=== PATIENT | female | born 1995 | race Caucasian/White ===

== ENCOUNTER 2017-07-06 16:59 | Outpatient (CLI) | payer BC ==
--- NOTE | 2017-07-06 17:43 | XRAY Report ---
EXAM: ABDOMEN RADIOGRAPHY EXAM DATE: 07/06/2017 05:31 PM. CLINICAL HISTORY: LEFT UPPER QUADRANT PAIN. COMPARISON: None. TECHNIQUE: 1 view. FINDINGS: Bowel Gas Pattern: Within normal limits. No dilated loops. Other: None. IMPRESSION: Normal 1-view abdomen x-ray. [facility] Referring Provider Line: [phone] SITE ID: [id number]
== END 2017-07-06 17:00 | disposition home or self-care (01) ==
LOC: DI 16:59
PROVIDERS: ATTEND Family Medicine
DX: R10.12 Left upper quadrant pain (principal)
CPT/HCPCS: 74018

== ENCOUNTER 2017-07-06 18:30 | Emergency (ER) | payer BC ==
[2017-07-06 20:00] LABS: BILIRUBIN,URINE NEGATIVE (NEGATIVE); GLUCOSE, URINE (UA) NEGATIVE (NEGATIVE); KETONES,URINE (UA) NEGATIVE (NEGATIVE); LEUKOCYTE ESTERASE, URINE NEGATIVE (NEGATIVE); NITRITE,URINE NEGATIVE (NEGATIVE); OCCULT BLOOD,URINE NEGATIVE (NEGATIVE); PROTEIN,URINE NEGATIVE (NEGATIVE); UROBILINOGEN,URINE 0.2 (NORMAL) E.U./dL (NORMAL)
[2017-07-06 20:02] LABS: CLARITY,URINE CLEAR (CLEAR); HCG UR QUAL NEGATIVE
[2017-07-06] MEDS ORDERED: ONDANSETRON 4 MG/2 ML VIAL IVP STA (20:08)
[2017-07-06] MEDS ORDERED: MORPHINE 2 MG/ML CARPUJECT IVP STA (20:08)
[2017-07-06 20:09] LABS: BASOPHILS % (AUTO) 0.3 %; EOSINOPHILS % (AUTO) 0.3 %; HGB - HEMOGLOBIN 13.5 g/dL (12.0-16.0); LYMPHOCYTES % (AUTO) 10.8 %; MEAN CORPUSCULAR HEMOGLOBIN 27.6 pg (27.0-31.0); MEAN CORPUSCULAR HGB CONC 33.1 g/dL (32.0-36.0); MEAN CORPUSCULAR VOLUME 83.3 fL (81.0-99.0); MEAN PLATELET VOLUME 7.4 fL (7.9-10.8); MONOCYTES # (AUTO) 0.5 10^3/uL (0.0-1.0); MONOCYTES % (AUTO) 5.9 %; NEUTROPHILS # (AUTO) 7.3 10^3/uL (1.5-6.6); NEUTROPHILS % (AUTO) 82.7 %; PLT - PLATELET COUNT 327 10^3/uL (130-450); RED BLOOD COUNT 4.91 10^6/uL (4.20-5.40); RED CELL DISTRIBUTION WIDTH 14.1 % (12.0-15.0); WHITE BLOOD COUNT 8.8 x10^3/uL (4.8-10.8)
[2017-07-06 20:21] LABS: ALBUMIN/GLOBULIN RATIO 1.4 (1.0-2.2); CALCIUM 9.4 mg/dL (8.5-10.3); CREATININE 0.8 mg/dL (0.4-1.0); TOTAL PROTEIN 8.5 g/dL (6.7-8.2)
[2017-07-06] MEDS ORDERED: IOPAMIDOL-300 100 ML VIAL ONE (20:55)
--- NOTE | 2017-07-06 21:03 | ED Physician Documentation ---
PD HPI ABD PAIN - Stated complaint Stated Complaint: ABD PAIN - Chief complaint Chief Complaint: Abd Pain - History obtained from History obtained from: Patient, Friend - History of Present Illness Timing - onset: How many days ago (3) Timing - details: Gradual onset, Still present Quality: Cramping, Aching Location: Epigastric, LUQ Worsened by: Eating, Moving Associated symptoms: Nausea. No: Fever, Vomiting Similar symptoms before: Work up / diagnostics Recently seen: Clinic - Additional information Additional information: Patient is a 21 year old female with no significant past medical history who is presenting to the emergency department for abdominal pain. patient states that the pain started three days ago and has persisted. Patient went to the clinic today where they did an x-ray which was negative. The clinic told the patient to come to the emergency department for a cT Review of Systems Constitutional: denies: Fever, Chills Eyes: reports: Reviewed and negative Ears: reports: Reviewed and negative Nose: reports: Reviewed and negative Throat: reports: Reviewed and negative Cardiac: denies: Chest pain / pressure, Palpitations Respiratory: denies: Dyspnea, Cough GI: reports: Abdominal Pain, Nausea, Constipation. 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 - Present Medications Home Medications: Ambulatory Orders Medication Instructions Recorded Confirmed Dextroamphetamine/Amphetamine 07/06/17 [Adderall 15 mg Tablet] Dicyclomine [Bentyl] 10 mg PO QID #20 capsule 07/06/17 Meloxicam 07/06/17 Omeprazole [PriLOSEC] 07/06/17 Ondansetron Odt [Zofran] 4 mg TL Q6H PRN #14 tablet 07/06/17 metFORMIN [Glucophage] 07/06/17 - Allergies Allergies/Adverse Reactions: Allergies Allergy/AdvReac Type Severity Reaction Status Date / Time No Known Drug Allergies Allergy Verified 07/06/17 19:00 - Social History Does the pt smoke?: No Smoking Status: Never smoker Does the pt drink ETOH?: Yes Does the pt have substance abuse?: No - Immunizations Immunizations are current?: No - POLST Patient has POLST: No PD ED PE NORMAL - Vitals Vital signs reviewed: Yes - General General: Alert and oriented X 3, Well developed/nourished - HEENT HEENT: Atraumatic, PERRL - Neck Neck: Supple, no meningeal sign - Cardiac Cardiac: RRR - Respiratory Respiratory: No respiratory distress - Abdomen Abdomen: Soft - Derm Derm: Normal color, Warm and dry, No rash - Extremities Extremities: No deformity, No calf tenderness / cord - Neuro Neuro: Alert and oriented X 3, No motor deficit, Normal speech Eye Opening: Spontaneous Motor: Obeys Commands Verbal: Oriented GCS Score: 15 - Psych Psych: Normal mood PD ED PE EXPANDED - HEENT HEENT: Dry mucous membranes - Abdomen Abdomen: Tender to palpation, Epigastric, LUQ. No: Rebound, Guarding Results - Vitals Vitals: Vital Signs - 24 hr 07/06/17 07/06/17 07/06/17 18:55 20:23 21:15 Temperature 37.9 C H Heart Rate 104 H 99 90 Respiratory 20 17 17 Rate Blood Pressure 102/58 L 105/71 109/70 O2 Saturation 100 100 100 07/06/17 07/06/17 21:43 22:06 Temperature Heart Rate 101 H 81 Respiratory 17 17 Rate Blood Pressure 107/66 O2 Saturation 98 98 Oxygen O2 Source Room air - Labs Labs: Laboratory Tests 07/06/17 07/06/17 07/06/17 19:52 20:01 20:01 WBC 8.8 RBC 4.91 Hgb 13.5 Hct 40.9 MCV 83.3 MCH 27.6 MCHC 33.1 RDW 14.1 Plt Count 327 MPV 7.4 L Neut # 7.3 H Lymph # 1.0 L [place] # 0.5 Eos # 0.0 Baso # 0.0 Absolute Nucleated RBC 0.00 Nucleated RBC % 0.0 Sodium 132 L Potassium 3.4 L Chloride 97 L Carbon Dioxide 22 Anion Gap 13.0 BUN 11 Creatinine 0.8 Estimated GFR (MDRD) 90 Glucose 91 Calcium 9.4 Total Bilirubin 1.0 AST 21 ALT 15 Alkaline Phosphatase 60 Total Protein 8.5 H Albumin 5.0 Globulin 3.5 Albumin/Globulin Ratio 1.4 Lipase 19 L Urine Color YELLOW Urine Clarity CLEAR Urine pH 8.0 H Ur Specific [place] 1.010 Urine Protein NEGATIVE Urine Glucose (UA) NEGATIVE Urine Ketones NEGATIVE Urine Occult Blood NEGATIVE Urine Nitrite NEGATIVE Urine Bilirubin NEGATIVE Urine Urobilinogen 0.2 (NORMAL) Ur Leukocyte Esterase NEGATIVE Ur Microscopic Review NOT INDICATED Urine Culture Comments NOT INDICATED Urine HCG, Qual NEGATIVE - Rads (name of study) ct abd and pelvis Radiology: Final report received (non specific enteritis) PD MEDICAL DECISION MAKING - ED course Complexity details: reviewed old records, reviewed results, re-evaluated patient , considered differential, d/w patient ED course: Patient was seen and examined at bedside. IV access was gained and labs were drawn. Patient was treated with fluids and morphine. Imaging was ordered. Upon re-evaluation patient's pain improved. When patient returned from imaging the results were reviewed. Patient had no acute abnormalities. Patient required no further work up and was stable for discharge with outpatient follow up. Upon discharge patient's abdomen was soft and non-tender. Departure - Departure Disposition: 01 Home, Self Care Clinical Impression: Abdominal pain, Enteritis Condition: Good Instructions: Abdominal Pain Follow-Up: Dillan Perez DO [Primary Care Provider] - As Needed Prescriptions: Dicyclomine [Bentyl] 10 mg PO QID #20 capsule Ondansetron Odt [Zofran] 4 mg TL Q6H PRN #14 tablet PRN Reason: Nausea / Vomiting Comments: Your diagnostics today were within normal limits. You had some non specific enteritis which is inflammation of your intestines. It is likely secondary to a stomach virus. You can take motrin or tylenol as needed for pain. zofran for nausea and bentyl for spams. You should follow up with your doctor if your symptoms don't improve over the next few days. Discharge Date/Time: 07/06/17 22:07
[2017-07-06 21:44] VITALS: BP 107/66
--- NOTE | 2017-07-06 21:46 | CT Report ---
EXAM: CT ABDOMEN AND PELVIS EXAM DATE: 07/06/2017 09:02 PM. CLINICAL HISTORY: Abd pain, epigastric, negative x-ray. COMPARISONS: None. TECHNIQUE: Routine helical CT imaging was performed through the abdomen and pelvis. IV contrast: 100 ML ISOVUE 300. Enteric contrast: No. Reconstructions: Coronal and sagittal. In accordance with CT protocol optimization, one or more of the following dose reduction techniques w ere utilized for this exam: automated exposure control, adjustment of mA and/or KV based on patient s ize, or use of iterative reconstructive technique. FINDINGS: Lung Bases: Unremarkable. Liver: Normal. No masses. Gallbladder/Bile Ducts: Unremarkable. Spleen: Normal. Pancreas: Normal. Adrenal Glands: Normal. Kidneys: Small left cortical cyst. Otherwise unremarkable. No hydronephrosis. Peritoneal Cavity/Bowel: Nondilated fluid-filled small bowel and right colon. Otherwise unremarkable bowel. No bowel dilation, free fluid, free air, or periaortic lymphadenopathy. Mild prominence of rig ht lower quadrant mesenteric nodes measuring up to 8 mm. Unremarkable region of the appendix. Pelvic Organs: Normal. The bladder and visualized pelvic organs are within normal limits. Vasculature: No aneurysms or other significant abnormality. Bones: No significant abnormality. Other: None. IMPRESSION: Nonspecific fluid filled bowel on the right, possibly due to enteritis. Otherwise unremar kable. [facility] Referring Provider Line: [phone] SITE ID: [id number]
== END 2017-07-06 22:07 | disposition home or self-care (01) ==
LOC: ED 18:30
DX: K52.9 Noninfective gastroenteritis and colitis, unspecified (principal); R10.12 Left upper quadrant pain
CPT/HCPCS: 36415; 74018; 74177; 80053; 81003; 81025; 83690; 85025; 96374; 99284; Q9967; 81001; 87086